=== PATIENT | female | born 1950 | race Caucasian/White ===

== ENCOUNTER 2022-05-20 18:00 | Emergency (ER) | payer OTHER ==
[~2022-05-20] VITALS: Ht 160 cm; Wt 72.7 kg
[2022-05-20] MEDS ORDERED: predniSONE 20 mg tablet PO ONE (19:05)
[2022-05-20] MEDS ORDERED: ipratropium/albuterol 3ml nebule NEB ONE (19:05)
--- NOTE | 2022-05-20 19:33 | NUR ---
RESP. SVN not given patient in Covid Isolation RN notified
[2022-05-20] MEDS ORDERED: BEBTELOVIMAB 175 MG/2 ML VIAL IV ONE (19:40)
[2022-05-20] MEDS ORDERED: PRED20TA PO (20:42)
--- NOTE | 2022-05-20 21:03 | NUR ---
RT stated they were not able to do nebulizer treatment due to pt being Covid positive.
[2022-05-20 21:54] VITALS: BP 141/81
== END 2022-05-20 21:56 | disposition home or self-care (01) ==
LOC: ER 18:01
DX: U07.1 COVID-19 (principal); J45.909 Unspecified asthma, uncomplicated; Z88.1 Allergy status to other antibiotic agents
CPT/HCPCS: 99285; J7512; M0222; Q0222